=== PATIENT | female | born 1985 | race Caucasian/White ===

== ENCOUNTER 2021-03-23 14:28 | Emergency (ER) | payer OTHER, SELFPAY ==
[2021-03-23 14:39] VITALS: BP 120/76; PULSE 71; RESP 16; TEMP 36.6; O2SAT 100
--- NOTE | 2021-03-23 14:56 | ED.GENADULT ---
HPI - General Adult General Chief complaint: Unspecified Stated complaint: RX Refill Time Seen by Provider: 03/23/21 14:47 Source: patient and RN notes reviewed Mode of arrival: ambulatory Limitations: no limitations History of Present Illness HPI narrative: Patient presents today requesting a refill on her Zoloft. She takes 50 mg daily and has run out. She just returned from living in [place] for 5 months and does not yet have a doctor. She is also running out of her BuSpar, prazosin, and hydroxyzine. MD complaint: Medication refill Related Data Home Medications Medication Instructions Recorded Confirmed buspirone 03/23/21 prazosin 03/23/21 sertraline [Zoloft] 50 mg PO DAILY 03/23/21 03/23/21 Allergies Allergy/AdvReac Type Severity Reaction Status Date / Time No Known Allergies Allergy Verified 03/23/21 14:46 Review of Systems Review of Systems: CONSTITUTIONAL: Denies body aches, fever, chills, or sweats. EYES: Denies visual changes, redness, or discharge. ENT: Denies rhinorrhea, congestion, sore throat, or otalgia. CARDIOVASCULAR: Denies chest pain, palpitations, or edema. RESPIRATORY: Denies cough or dyspnea. GASTROINTESTINAL: Denies abdominal pain, nausea, vomiting, or diarrhea. GENITOURINARY: Denies dysuria or hematuria. SKIN: Denies rash, itching, or wounds. MUSCULOSKELETAL: Denies back pain, joint pain, or myalgia. NEUROLOGIC: Denies headache, numbness, tingling, or weakness. PSYCH: Denies depression or anxiety. [facility] Past Medical History Medical History (Updated 03/23/21 @ 14:59 by Pily Espino, [facility], ) Anxiety PTSD (post-traumatic stress disorder) Comments At time of signature, I have reviewed and agree with nursing past medical, surgical, social and family history unless otherwise noted. Please see nursing chart for further information. There is no relevant family history pertinent to the presenting complaint Exam Narrative: GENERAL: Well-appearing, well-nourished, and in no acute distress. HEAD: Normocephalic, atraumatic. EYES: EOMI. No redness or drainage. Conjunctivae normal. ENT: Mucous membranes pink and moist. NECK: Normal AROM. Supple. No lymphadenopathy. CHEST: No respiratory distress. EXTREMITIES: Normal range of motion. No edema. SKIN: Warm, dry, no rash. Capillary refill normal. Normal skin turgor. NEURO: No focal deficits. Alert and oriented x3. Gait steady. PSYCH: Normal affect. No signs of depression or anxiety. Course Vital Signs Vital signs: Vital Signs Temperature 97.9 F 03/23/21 14:39 Pulse Rate 71 03/23/21 14:39 Respiratory Rate 16 03/23/21 14:39 Blood Pressure 120/76 03/23/21 14:39 Pulse Oximetry 100 03/23/21 14:39 Temperature 97.9 F 03/23/21 14:39 Pulse Rate 71 03/23/21 14:39 Respiratory Rate 16 03/23/21 14:39 Blood Pressure 120/76 03/23/21 14:39 Pulse Oximetry 100 03/23/21 14:39 Reviewed Medical Decision Making Differential Diagnosis Differential Diagnosis: Medication refill Vital Signs Vital Signs: Vital Signs Temperature 97.9 F 03/23/21 14:39 Pulse Rate 03/23/21 14:39 Respiratory Rate 03/23/21 14:39 Blood Pressure 120/76 03/23/21 14:39 Pulse Oximetry 100 03/23/21 14:39 Temperature 97.9 F 03/23/21 14:39 Pulse Rate 03/23/21 14:39 Respiratory Rate 03/23/21 14:39 Blood Pressure 120/76 03/23/21 14:39 Pulse Oximetry 100 03/23/21 14:39 Critical Care Time Critical Care Time Critical Care Time: No Discharge Plan Discharge Clinical Impression: Encounter for medication refill Patient Disposition: Home, Self-Care Condition: Stable Additional Instructions: Take all medications as prescribed. Follow-up with a new PCP soon as possible. You have been given contact information for new PCPs in the area. Patient Language: Qatari Prescriptions: New sertraline 50 mg tablet 50 mg PO DAILY Qty: 30 RF: 0 buspirone 10 mg ta
== END 2021-03-23 15:07 | disposition home or self-care (01) ==
PROVIDERS: Emergency Provider Nurse Practitioner
DX: Z76.0 Encounter for issue of repeat prescription (principal)
CPT/HCPCS: 99211; G0463

== ENCOUNTER 2021-05-03 11:24 | Emergency (ER) | payer OTHER, SELFPAY ==
[2021-05-03 11:33] VITALS: BP 129/96; PULSE 64; RESP 16; TEMP 36.3; O2SAT 100
--- NOTE | 2021-05-03 12:00 | ED.URI ---
HPI - URI/Sore Throat General Chief Complaint: Upper Respiratory Infection Stated Complaint: Congestion,Refill Prescription Source: patient and RN notes reviewed Limitations: no limitations History of Present Illness HPI Narrative: The vaccinated patient, a smoker/nondrinker, presents with cough, nasal congestion preceded by scratchy sore throat and occasional sneezing. No fever, wheeze, earache; no loss of taste or smell, CP, vomiting/diarrhea, S OB. Her family has been sick; she requests refill of previous meds pending upcoming doctor appointment. Related Data Home Medications Medication Instructions Recorded Confirmed sertraline [Zoloft] 50 mg PO DAILY 03/23/21 03/23/21 Allergies Allergy/AdvReac Type Severity Reaction Status Date / Time No Known Allergies Allergy Verified 03/23/21 14:46 Review of Systems Review of Systems: The patient has been informed that they may have pre-hypertension or Hypertension based on a BP reading in the department. I recommend that the patient call the primary care provider listed on their discharge instructions or a physician of their choice this week to arrange follow up for further evaluation of possible pre-hypertension or Hypertension General/Constitutional: No weight loss,fever Eyes: N0: Redness,discharge Ears/Nose/Throat: No: Epistaxis,ear discharge Respiratory: Denies: Hemoptysis Gastrointestinal: No Vomiting, Bleeding-rectal Skin: No Lumps, eruption Neurologic: No Focal Weakness,Sz Hematologic: Denies: Petechiae/Purpura Psychiatric: No: Suicida ideationl All Other Systems: Reviewed and Negative [facility] Past Medical History Medical History (Updated 05/03/21 @ 13:48 by Watson Pollock MD) Anxiety PTSD (post-traumatic stress disorder) Comments At time of signature, agree with nursing past medical, surgical, social and family history. There is no relevant family history pertinent to the presenting complaint Exam Narrative: General Appearance: Well appearing, Conjunctiva clear Ears: Auditory canal normal, TM normal Nose: Rhinorrhea, Mucousal erythema Mouth/Throat: MM moist, Uvula midline, Pharyngeal erythema Neck: Supple, No adenopathy Respiratory: No respiratory distress, Breath sounds equal, Clear to auscultation Cardiovascular: RRR, No JVD Musculoskeletal: Non tender, Normal strength Skin: Warm, Dry Neurological: A&O x3,, Normal affect Course Vital Signs Vital signs: Vital Signs Temperature 97.3 F L 05/03/21 11:33 Pulse Rate 64 05/03/21 11:33 Respiratory Rate 16 05/03/21 11:33 Blood Pressure 129/96 H 05/03/21 11:33 Pulse Oximetry 100 05/03/21 11:33 Temperature 97.3 F L 05/03/21 11:33 Pulse Rate 64 05/03/21 11:33 Respiratory Rate 16 05/03/21 11:33 Blood Pressure 129/96 H 05/03/21 11:33 Pulse Oximetry 100 05/03/21 11:33 MDM - URI/Sore Throat Lab Data Labs: Lab Results 05/03/21 Range/Units 12:15 POC SARS CoV-2 Ag Negative (Negative) Discharge Plan Discharge Clinical Impression: Cough Patient Disposition: Home, Self-Care Condition: Stable Instructions: Antibiotic Form Prescriptions: New buspirone 15 mg tablet 15 mg PO BID Qty: 60 RF: 1 sertraline [Zoloft] 50 mg tablet 50 mg PO DAILY Qty: 30 RF: 2 azelastine 137 mcg (0.1 %) aerosol,spray 137 mcg NASAL Q12H Qty: 30 RF: 0 cefuroxime axetil 500 mg tablet 500 mg PO Q12H Qty: 14 RF: 0 albuterol sulfate 2.5 mg /3 mL (0.083 %) solution for nebulization 2.5 mg inhalation Q4H PRN (Reason: bronchospasm) Qty: 15 RF: 0 benzonatate [Tessalon Perles] 100 mg capsule 100 mg PO TID Qty: 20 RF: 1 No Action sertraline [Zoloft] 50 mg Tablet 50 mg PO DAILY RF: 0 buspirone 10 mg tablet 20 mg PO BID Qty: 120 RF: 0 prazosin 2 mg capsule 2 mg PO HS Qty: 30 RF: 0 hydroxyzine HCl 50 mg tablet 50 mg PO HS PRN (Reason: anxiety) Qty: 30 RF: 0 Follow-up/Referrals: [facility]
== END 2021-05-03 12:42 | disposition home or self-care (01) ==
PROVIDERS: Emergency Provider Emergency Medicine
DX: R05.9 Cough, unspecified (principal); Z20.822 Contact with and (suspected) exposure to COVID-19; F41.9 Anxiety disorder, unspecified; F43.10 Post-traumatic stress disorder, unspecified; F17.200 Nicotine dependence, unspecified, uncomplicated
CPT/HCPCS: 87426; 99213; C9803; G0463

== ENCOUNTER 2021-06-14 10:37 | Emergency (ER) | payer OTHER, SELFPAY ==
[2021-06-14 10:47] VITALS: BP 117/81; PULSE 64; RESP 16; TEMP 36.7; O2SAT 100
--- NOTE | 2021-06-14 10:48 | ED.GENADULT ---
HPI - General Adult General Chief complaint: Unspecified Stated complaint: RX Refill Time Seen by Provider: 06/14/21 10:48 Source: patient, RN notes reviewed and old records reviewed Mode of arrival: ambulatory Limitations: no limitations History of Present Illness HPI narrative: 35-year-old female presents to the [facility] requesting a refill on her antidepressants. states that she just moved her from [place] and has been out for a week Patient has been seen here March and April was prescribed the medications. Both times instructed to follow-up with a primary care provider. In April the provider had even given her refills and instructed her to follow-up with a primary care provider before her medications run out. Patient became extremely upset when we explained that she still had refills and that we would not be refilling her medication here. Related Data Home Medications Medication Instructions Recorded Confirmed sertraline [Zoloft] 50 mg PO DAILY 03/23/21 03/23/21 Allergies Allergy/AdvReac Type Severity Reaction Status Date / Time No Known Allergies Allergy Verified 03/23/21 14:46 Review of Systems Review of Systems: Patient here for medication refills. Became upset during triage. Unable to get a complete review of systems or an exam. All systems reviewed & are unremarkable except as noted in HPI and below Constitutional: Constitutional: Reports no additional constitutional complaints PMFSH Past Medical History Medical History Anxiety PTSD (post-traumatic stress disorder) Comments At the time of my signature, I reviewed and agree with the nursing past medical, surgical, social, and family history. There is no relevant family history pertinent to the patient complaint. Exam Narrative: Unable to get a complete exam due to patient upset that we will not refill her depression medications Const: General: no acute distress Nutritional Appearance: well nourished Orientation/consciousness: patient oriented x3 Psych: Affect: Anxious affect present Course Course Emergency Course: Attempted to explain to patient that we are not a refill clinic and is important to follow-up with a primary care provider to help monitor her medications. At that time patient became extremely upset and yelling. Explained to patient that she still had refills on her prescriptions and that it was important to follow-up. Multiple primary care providers have been given to her in the past. Again patient got up started yelling and walked out. Vital Signs Vital signs: Vital Signs Temperature 98.1 F 06/14/21 10:47 Pulse Rate 64 06/14/21 10:47 Respiratory Rate 16 06/14/21 10:47 Blood Pressure 117/81 06/14/21 10:47 Pulse Oximetry 100 06/14/21 10:47 Temperature 98.1 F 06/14/21 10:47 Pulse Rate 64 06/14/21 10:47 Respiratory Rate 16 06/14/21 10:47 Blood Pressure 117/81 06/14/21 10:47 Pulse Oximetry 100 06/14/21 10:47 Reviewed Medical Decision Making Differential Diagnosis Differential Diagnosis: Anxiety, depression Vital Signs Vital Signs: Vital Signs Temperature 98.1 F 06/14/21 10:47 Pulse Rate 64 06/14/21 10:47 Respiratory Rate 16 06/14/21 10:47 Blood Pressure 117/81 06/14/21 10:47 Pulse Oximetry 100 06/14/21 10:47 Temperature 98.1 F 06/14/21 10:47 Pulse Rate 64 06/14/21 10:47 Respiratory Rate 16 06/14/21 10:47 Blood Pressure 117/81 06/14/21 10:47 Pulse Oximetry 100 06/14/21 10:47 Critical Care Time Critical Care Time Critical Care Time: No Discharge Plan Discharge Clinical Impression: Medication refill Patient Disposition: [facility]op[facility] After Seen by Prov Prescriptions: No Action sertraline [Zoloft] 50 mg Tablet 50 mg PO DAILY RF: 0 buspirone 10 mg tablet 20 mg PO BID Qty: 120 RF: 0 prazosin 2 mg capsule 2 mg PO HS Qty: 30 RF: 0 hydroxyzine HCl 50 mg tablet 50
== END 2021-06-14 10:50 | disposition left against medical advice (07) ==
PROVIDERS: Emergency Provider Nurse Practitioner
DX: Z76.0 Encounter for issue of repeat prescription (principal); F32.9 Major depressive disorder, single episode, unspecified; F41.9 Anxiety disorder, unspecified
CPT/HCPCS: 99211; G0463

== ENCOUNTER 2021-07-08 13:08 | Emergency (ER) | payer OTHER, SELFPAY ==
[2021-07-08 13:20] VITALS: BP 116/81; PULSE 85; RESP 16; TEMP 37; O2SAT 99
--- NOTE | 2021-07-08 14:40 | ED.URI ---
HPI - URI/Sore Throat General Chief Complaint: Upper Respiratory Infection Stated Complaint: Sore Throat,Congestion Time Seen by Provider: 07/08/21 14:40 Source: patient, RN notes reviewed and old records reviewed Mode of arrival: ambulatory Limitations: no limitations History of Present Illness HPI Narrative: 35 year old female who presents to [facility] care with complaints of some fever,sore throat, sinus congestion and sinus pressure since Wednesday. Patient states he has been coughing some but denies any shortness of breath or any wheezing. She states that she is COVId and flu vaccinate an took home COVID test yesterday which was Negative. Patient reports that she has been taking Tylenol and Ibuprofen for her symptoms. States that coworkers have been ill. MD elicited complaint: sore throat, rhinorrhea and nasal congestion Related Data Home Medications Medication Instructions Recorded Confirmed buspirone 15 mg PO DAILY 07/08/21 07/08/21 sertraline 50 mg PO DAILY 07/08/21 07/08/21 Allergies Allergy/AdvReac Type Severity Reaction Status Date / Time No Known Allergies Allergy Verified 07/08/21 14:26 Review of Systems Review of Systems: CONSTITUTIONAL: reports fever, no chills, or sweats. EYES: Denies visual changes, redness, or discharge. ENT: Positive for rhinorrhea, congestion, sore throat,no otalgia. CARDIOVASCULAR: Denies chest pain, palpitations, or edema. RESPIRATORY: Positive for cough denies dyspnea. GASTROINTESTINAL: Denies abdominal pain, nausea, vomiting, or diarrhea. GENITOURINARY: Denies dysuria or hematuria. SKIN: Denies rash or itching. MUSCULOSKELETAL: Denies back pain, joint pain, no body aches NEUROLOGIC: Denies headache, numbness, or weakness. PSYCHIATRIC: Positive for history of anxiety or depression. All systems reviewed & are unremarkable except as noted in HPI and below PMFSH Comments At time of signature, agree with nursing past medical, surgical, social and family history. There is no relevant family history pertinent to the presenting complaint Exam Narrative: GENERAL: Well-appearing, well-nourished, and in no acute distress. HEAD: Normocephalic, atraumatic. EYES: PERRLA and EOMI. ENT: Nares red with swollen turbinates, clear rhinorrhea no epistaxis. Mucous membranes moist.TM's normal with good light refles, no canal drainage, throat red with no lesions exudates or tonsil enlargement NECK: Supple.no lymphadenopathy CHEST: Clear to auscultation. No respiratory distress.SAO2 99% on room air HEART: Regular rate and rhythm. No murmur heard. Normal peripheral pulses. ABDOMEN: Soft, nontender, nondistended, normal active bowel sounds. EXTREMITIES: Normal range of motion. No edema. SKIN: Warm, dry, no rash. NEURO: No focal deficits. Alert and oriented x3. Course Course Level of Care: Express Care Visit Vital Signs Vital signs: Vital Signs Temperature 37.0 C 07/08/21 13:20 Pulse Rate 85 07/08/21 13:20 Respiratory Rate 16 07/08/21 13:20 Blood Pressure 116/81 07/08/21 13:20 Pulse Oximetry 99 07/08/21 13:20 Temperature 37.0 C 07/08/21 13:20 Pulse Rate 85 07/08/21 13:20 Respiratory Rate 16 07/08/21 13:20 Blood Pressure 116/81 07/08/21 13:20 Pulse Oximetry 99 07/08/21 13:20 MDM - URI/Sore Throat Differential Diagnosis Differential diagnosis: Likely upper respiratory infection, sinusitis, pharyngitis and other (strep pharyngitis) Medical Records Attestation: I reviewed the patient's medical records. Lab Data Attestation: I reviewed the patient's lab results. Lab results narrative: Strep screen negative Labs: Strep Screen Presumptive Negative *(Reference Range: Negative)* Critical Care Time Critical Care Time Critical Care Time: No Discharge Plan Discharge Clinical Impression: Upper respiratory infection, Pharyngitis Patient Disposition: Home, Self-Care Condition: Stable Instructions
== END 2021-07-08 15:15 | disposition home or self-care (01) ==
PROVIDERS: Emergency Provider Registered Nurse
DX: J02.9 Acute pharyngitis, unspecified (principal); J06.9 Acute upper respiratory infection, unspecified
CPT/HCPCS: 87081; 87880; 99203; G0463

== ENCOUNTER 2021-12-11 12:50 | Emergency (ER) | payer OTHER, SELFPAY ==
[2021-12-11 13:06] VITALS: BP 124/84; PULSE 57; RESP 16; TEMP 36.7; O2SAT 100
--- NOTE | 2021-12-11 13:13 | ED.URI ---
HPI - URI/Sore Throat General Chief Complaint: Upper Respiratory Infection Stated Complaint: sore throat Time Seen by Provider: 12/11/21 13:22 Source: patient and RN notes reviewed Mode of arrival: ambulatory Limitations: no limitations History of Present Illness HPI Narrative: 36-year-old female presents with concern for sore throat. She reports she has been having sore throat, painful swallowing, ear popping for 2 days. Reports exposure to strep at work. She denies MD elicited complaint: sore throat Related Data Home Medications Medication Instructions Recorded Confirmed buspirone 15 mg tablet 15 mg PO DAILY 07/08/21 07/08/21 sertraline 50 mg tablet 50 mg PO DAILY 07/08/21 07/08/21 Allergies Allergy/AdvReac Type Severity Reaction Status Date / Time No Known Allergies Allergy Verified 07/08/21 14:26 Review of Systems Review of Systems: CONSTITUTIONAL: Reports malaise, fatigue. Denies chills, sweats, or fever. EYES: Denies visual changes, redness, or discharge. ENT: Denies rhinorrhea, congestion, sinus pain. Reports otalgia and sore throat. CARDIOVASCULAR: Denies chest pain, palpitations, or edema. RESPIRATORY: Denies cough. Denies dyspnea. GASTROINTESTINAL: Denies abdominal pain, nausea, vomiting, diarrhea SKIN: Denies rash or itching. MUSCULOSKELETAL: Denies myalgia. NEUROLOGIC: Denies headache. All systems reviewed & are unremarkable except as noted in HPI and below PMFSH Comments At time of signature, agree with nursing past medical, surgical, social and family history. There is no relevant family history pertinent to the presenting complaint Exam Narrative: GENERAL: Well-appearing, well-nourished, and in no acute distress. HEAD: Normocephalic EYES: PERRLA, conjunctivae clear ENT: Nares clear, no discharge. Mucous membranes moist. TM pearly padilla with dull light reflex bilaterally; no tragal tenderness. Oropharynx mildly erythematous with 2 small white lesions. Tonsils not enlarged and without exudate, no drooling, no hoarseness, no trismus, uvula midline. NECK: Supple. No lymphadenopathy CHEST: Clear to auscultation, breath sounds equal. No wheezing, rhonchi, rales, or stridor. No respiratory distress, speaks in full sentences. HEART: Regular rate and rhythm. No murmur heard. SKIN: Warm, dry, no rash. NEURO: Alert and oriented x3. PSYCH: Normal mood and affect Course Course Emergency Course: Patient is aware of diagnosis, understands and agrees to treatment plan. Anticipatory guidance given. Patient agrees to follow-up as directed and is aware of reasons to seek care at the emergency department. Portions of this record may have been created with voice recognition software Level of Care: Express Care Visit Vital Signs Vital signs: Reviewed. MDM - URI/Sore Throat MDM Narrative Medical decision making narrative: Differential diagnosis considered: Purcell virus, strep pharyngitis, allergic rhinitis, upper respiratory tract infection, sinusitis, rhinosinusitis, nasopharyngitis. viral pharyngitis, otitis media, otitis externa, pneumonia, bronchitis, viral cough syndrome, viral syndrome, and influenza. Exam findings show no acute concerns or changes; patient is non-toxic appearing and is in no distress. Patient is appropriate for outpatient treatment and follow-up. Lab Data Attestation: I reviewed the patient's lab results. Critical Care Time Critical Care Time Critical Care Time: No Discharge Plan Discharge Clinical Impression: Pharyngitis Patient Disposition: Home, Self-Care Condition: Stable Instructions: Pharyngitis (ED) Additional Instructions: Your rapid strep swab was negative today at [facility]. A throat culture will be sent to the laboratory for further testing. If the test is positive, you will receive a phone call within 48 hours and an appropriate antibiotic will be initiated at that time. Your symptoms are likely due to a viral illness, which is not treated with anti
== END 2021-12-11 13:36 | disposition home or self-care (01) ==
PROVIDERS: Emergency Provider Nurse Practitioner
DX: J02.9 Acute pharyngitis, unspecified (principal); F41.9 Anxiety disorder, unspecified; F32.A Depression, unspecified
CPT/HCPCS: 87081; 87880; 99213; G0463